=== PATIENT | male | born 1990 | race Two or more races ===

== ENCOUNTER 2017-10-09 06:39 | Emergency (ER) | payer SELFPAY ==
[~2017-10-09] VITALS: Ht 170.2 cm; Wt 76.2 kg
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
[2017-10-09] MEDS ORDERED: HYDROCODONE/APAP 10-325 MG TABLET ONE (06:56)
[2017-10-09] MEDS ORDERED: TDAP DIPH,PERTUSS,TET VAC/PF 0.5 ML DISP.SYRIN IM ONE ×2 (07:00→07:20)
[2017-10-09] MEDS ORDERED: HYDROCODONE/APAP 10-325 MG TABLET PO ONE (07:00)
--- NOTE | 2017-10-09 07:02 | NUR ---
RADIOLOGY AT BEDSIDE FOR XRAY OF HAND.
[2017-10-09] MEDS ORDERED: CEFAZOLIN 1 G VIAL IM ONE (07:15)
[2017-10-09] MEDS ORDERED: CEFAZOLIN 1 G VIAL ONE (07:20)
--- NOTE | 2017-10-09 07:46 | NUR ---
Patient discharged to home in stable conditon. Written and verbal after care instructions given to patient and patient's friend. Patient and friend verbalized understanding of instructions. MD checked the finger splint post placement.
== END 2017-10-09 08:05 | disposition home or self-care (01) ==
LOC: ER 06:39
DX: S62.604B Fracture of unspecified phalanx of right ring finger, initial encounter for open fracture (principal); F17.210 Nicotine dependence, cigarettes, uncomplicated; W51.XXXA Accidental striking against or bumped into by another person, initial encounter; Y93.89 Activity, other specified; Y92.89 Other specified places as the place of occurrence of the external cause; Y99.8 Other external cause status
CPT/HCPCS: 29130; 73130; 90471; 90715; 96372; 99284; A4217; A4663; J0690